=== PATIENT | female | born 1970 | race Caucasian/White ===

== ENCOUNTER 2016-11-19 07:27 | Observation (INO) | payer OTHER ==
[~2016-11-19] VITALS: Ht 160 cm; Wt 59.1 kg
[2016-11-19] VITALS (23 sets, daily range): BP systolic 94–154; BP diastolic 53–82; PULSE 56–83; RESP 8–55; Ht 160 cm; Wt 59.1 kg
[~2016-11-19 07:27] MED LIST: CEFAZOLIN 2 GM/50 ML (PMX) 50 ML IVPB ONE; D5-NS + KCL 20 MEQ 1,000 ML IV SCH; ROCURONIUM 50 MG INJ ONE; ROPIVACAINE 0.2% 20 ML VIAL ONE; SEVOFLURANE 15 MIN ONE; metroNIDAZOLE 500 MG/100 ML NS IVPB ONE; metroNIDAZOLE 500 MG/NS (PMX) 100 ML IVPB ONE
[2016-11-19] MEDS ORDERED: MIDAZOLAM 1 MG/ML 2 ML INJ ONE (08:08)
[2016-11-19] MEDS ORDERED: PROPOFOL 20 ML ONE (08:08)
[2016-11-19] MEDS ORDERED: LIDOCAINE 2% (SDV) 5 ML INJ ONE (08:08)
[2016-11-19] MEDS ORDERED: SUCCINYLCHOLINE CHLORIDE 100 MG/5 ML SYG IV ONE (08:08)
[2016-11-19] MEDS ORDERED: metroNIDAZOLE 500 MG/NS (PMX) 0 ML IVPB ONE (08:08)
[2016-11-19] MEDS ORDERED: CEFAZOLIN 1 GM INJ ONE (08:08)
[2016-11-19] MEDS ORDERED: FENTAnyl 50 MCG/ML VIAL ONE (08:08)
[2016-11-19] MEDS ORDERED: ALEN70TA30 PO (08:17)
[2016-11-19] MEDS ORDERED: LEVO25TA50 PO (08:18)
[2016-11-19] MEDS ORDERED: ESCI10TA PO (08:18)
--- NOTE | 2016-11-19 08:49 | RADRPT ---
PROCEDURE: XR Chest. CLINICAL INDICATION: Preop TECHNIQUE: A single AP view of the chest was obtained. COMPARISON: None. FINDINGS: No focal airspace opacification, pleural effusion or pneumothorax is seen. The cardiomediastinal si lhouette is within normal limits for size. The osseous structures are unremarkable. IMPRESSION: No radiographic evidence of acute cardiopulmonary disease. RPTAT: HH .Lala Cruz MD, MD Date Time Electronically viewed and signed by .Lala Cruz MD, on 11/19/2016 08:49 .G/
[2016-11-19] MEDS ORDERED: VASOPRESSIN 20 UNITS INJ ONE (09:20)
[2016-11-19] MEDS ORDERED: THROMBIN 5000 UNIT VIAL ONE (09:21)
--- NOTE | 2016-11-19 09:23 | HPN ---
Date/Time of Note Date/Time of Note DATE: 11/19/16 TIME: 09:23 Interval H&P Admission Note Pt. seen H&P reviewed: No system changes ARCHANA PETER MD Nov 19, 2016 09:23
[2016-11-19] MEDS ORDERED: METOCLOPRAMIDE 10 MG INJ ONE (10:33)
[2016-11-19] MEDS ORDERED: DEXAMETHASONE 4 MG/ML 1 ML INJ ONE (10:33)
[2016-11-19] MEDS ORDERED: ONDANSETRON 4 MG INJ ONE ×2 (10:33→12:34)
[2016-11-19] MEDS ORDERED: ACETAMINOPHEN 1000MG/100ML IV 100 ML ONE (10:35)
--- NOTE | 2016-11-19 11:03 | HP ---
Date/Time of Note Date/Time of Note DATE: 11/19/16 TIME: 11:02 Assessment/Plan VTE Prophylaxis VTE Prophylaxis Intervention: SCD's Lines/Catheters IV Catheter Type (from Nrs): Peripheral IV HPI/ROS Admit Date/Time Admit Date/Time Nov 19, 2016 at 07:27 Hx of Present Illness Archana Peter M.D. 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 The mass is complex mostly solid and Ca 125- 8 Medical history/ROS: Hypothyroid d/o, High Cholesterol, Hx of Hodgkin's Lymphoma previously treated with Chemotherapy 13 years ago. G 2 P 1 Ab 0 x 1 Surgical history: no significant abdominal procedures. Medications: 11/09/16 alendronate 35 mg tablet 1 tablet by mouth Q1wk 11/09/16 escitalopram 10 mg tablet 1 tablet by mouth DAILY 10/15/16 Flagyl 250 mg tablet 1 tablet by mouth as directed 1 po qd x 2 days germán 10/15/16 Golytely 236 gram-22.74 gram-6.74 gram-5.86 gram oral solution 1 mL by mouth as directed begin bowel prep at 10am 10/15/16 Levaquin 250 mg tablet 1 tablet by mouth as directed 1 po qd x 2 days germán 08/17/16 levothyroxine 100 mcg tablet 1 tablet by mouth DAILY 11/09/16 levothyroxine 25 mcg tablet 1 tablet by mouth DAILY 10/15/16 tramadol 50 mg tablet 1 tablet by mouth as directed 1 po q 8 prn pain gardisil Allergies: 08/17/16 Fentanyl Family Hx: non-contributary Social HX: non-contributary ROS: as above Colonoscopy Physical Examination Vitals (11/17/2016): Weight 135, Height 62.5, BP 118/64, BMI 24.7. General: Alert. HEENT: Pupils are equal, round, reactive to light and accommodation. Neck: Supple with no masses of lymphadenopathy. Breast: Deferred due to recent examination and responsibility of primary care physician. Chest: Clear to auscultation Heart: Normal rhythm with no murmur. Abdomen: Non tender, no ascites nor organomeglay. Pelvic exam: Right adnexal fullness/mass possibly solid, no specific cul-de-sac nodularity. Rectal: confirmatory with pelvic exam. Neurological: Grossly intact Assessment: Pelvic- mass Plan: Laparoscopic LSH/BSO, possible UDx2 , possible staging, possible open. All risks and benefits of this procedure have been discussed in detail with the patient, as well as alternative treatment strategies and their implications. The patient is aware that there is some possibility of a blood transfusion and its associated risks and benefits. She wishes to proceed and gives her informed consent. Archana Peter M.D. PMH/Family/Social Social History Smoking Status: Never smoker Exam/Review of Systems Vital Signs Vitals Vital Signs Date Time Temp Pulse Resp B/P Pulse Ox O2 Delivery O2 Flow Rate FiO2 11/19/16 08:58 97.8 72 16 154/82 100 Medications Medications Current Medications Potassium Chloride/Dextrose/ Sod Cl (D5-NS + KCl 20 Meq) 1,000 ml @ 100 mls/hr Q10H IV ; Start 11/19/16 at 07:00; Stop 11/19/16 at 16:59 ARCHANA PETER MD Nov 19, 2016 11:03
[2016-11-19] MEDS ORDERED: HYDROmorphONE 2 MG/ML SYG ONE (11:32)
[2016-11-19] MEDS ORDERED: LABETALOL HCL 20MG INJ ONE (11:34)
[2016-11-19] MEDS ORDERED: METHYLENE BLUE 1% 10 ML INJ ONE ×2 (11:35→11:39)
[2016-11-19] MEDS ORDERED: ROPIVACAINE 0.2% 20 ML VIAL ONE (12:16)
[2016-11-19] MEDS ORDERED: morphine SULFATE/PF (10 MG/10 ML) INJ ONE (12:16)
[2016-11-19] MEDS ORDERED: GLYCOPYRROLATE 1 MG INJ ONE (12:28)
[2016-11-19] MEDS ORDERED: NEOSTIGMINE 3 MG/3 ML SYRINGE ONE (12:28)
[2016-11-19] MEDS ORDERED: KETOROLAC 30 MG INJ ONE (12:33)
[2016-11-19] MEDS ORDERED: NALOXONE (0.4 MG/ML) INJ ONE (12:53)
[2016-11-19] MEDS ORDERED: MEPERIDINE 25 MG INJ ONE (13:26)
[2016-11-19] MEDS ORDERED: traMADol 50 MG TAB PO PRN (13:30)
[2016-11-19] MEDS ORDERED: morphine 4 MG/ML VIAL IV PRN (13:30)
[2016-11-19] MEDS ORDERED: DIPHENHYDRAMINE 50 MG INJ IV PRN (13:30)
[2016-11-19] MEDS ORDERED: MEPERIDINE 25 MG INJ IV PRN (13:30)
[2016-11-19] MEDS ORDERED: LABETALOL HCL 20MG INJ IV PRN (13:30)
[2016-11-19] MEDS ORDERED: NALBUPHINE HCL (10 MG/1 ML) INJ IV PRN (13:30)
[2016-11-19] MEDS ORDERED: ZOLPIDEM 5 MG TAB PO PRN (13:30)
[2016-11-19] MEDS ORDERED: TRIMETHOBENZAMIDE 100 MG/ML VIAL IM PRN (13:30)
[2016-11-19] MEDS ORDERED: HYDROCODONE/APAP (5/325) TAB PO PRN (13:30)
[2016-11-19] MEDS ORDERED: KETOROLAC 30 MG INJ IV PRN (13:30)
[2016-11-19] MEDS ORDERED: MIDAZOLAM 1 MG/ML 2 ML INJ IV PRN (13:30)
[2016-11-19] MEDS ORDERED: PROCHLORPERAZINE 10 MG INJ IV PRN (13:30)
[2016-11-19] MEDS ORDERED: HYDROmorphONE (0.2 MG/ML) 10ML SYG IV PRN ×2 (13:30)
[2016-11-19] MEDS ORDERED: NALOXONE (0.4 MG/ML) INJ IV PRN (13:30)
[2016-11-19] MEDS ORDERED: morphine 2 MG INJ IV PRN (13:30)
[2016-11-19] MEDS ORDERED: hydrALAzine 20 MG INJ IV PRN (13:30)
[2016-11-19] MEDS ORDERED: FENTAnyl 50 MCG/ML VIAL IV PRN (13:30)
[2016-11-19] MEDS ORDERED: ONDANSETRON 4 MG INJ IV PRN ×3 (13:30)
[2016-11-19] MEDS: DIPHENHYDRAMINE 50 MG INJ IV PRN ×2 (13:34→22:17)
[2016-11-19] MEDS ORDERED: KETOROLAC 30 MG INJ IV SCH (14:00)
[2016-11-19 14:05] LABS: ADD UMIC YES; URINE BILIRUBIN (Dip) NEGATIVE (NEGATIVE); URINE BLOOD (Dip) TRACE (NEGATIVE); URINE COLOR LT YELLOW (YELLOW); URINE GLUCOSE (Dip) NEGATIVE (NEGATIVE); URINE KETONES (Dip) NEGATIVE (NEGATIVE); URINE LEUKOCYTE ESTERASE (Dip) NEGATIVE (NEGATIVE); URINE NITRITE (Dip) NEGATIVE (NEGATIVE); URINE TOTAL PROTEIN (Dip) NEGATIVE (NEGATIVE); URINE UROBILINOGEN (Dip) 0.2 E.U./dL (0.1-1.0)
[2016-11-19 14:19] LABS: BACTERIA,URINE RARE; URINE RBCS 0-2 /HPF (0)
[2016-11-19] MEDS: D5-LR + KCL 20 MEQ 1,000 ML IV SCH (15:36)
[2016-11-19] MEDS: FAMOTIDINE 20 MG INJ IV SCH (20:25)
[2016-11-20] MEDS: D5-LR + KCL 20 MEQ 1,000 ML IV SCH ×2 (00:47→11:29)
[2016-11-20] MEDS: DIPHENHYDRAMINE 50 MG INJ IV PRN (01:58)
[2016-11-20 05:03] LABS: ADD SCAN DIFF NO
[2016-11-20 05:09] LABS: BASOPHILS % 0.1 % (0.0-2.0); HEMATOCRIT 36.5 % (37.0-47.0); HEMOGLOBIN 11.7 g/dl (12.0-16.0); LYMPHOCYTES # 0.7 10^3/ul (0.8-2.9); LYMPHOCYTES % 6.4 % (15.0-51.0); MEAN CORPUSCULAR HEMOGLOBIN 32.1 pg (29.0-33.0); MEAN CORPUSCULAR HGB CONC 32.1 g/dl (32.0-37.0); MONOCYTE # 0.9 10^3/ul (0.3-0.9); MONOCYTES % 7.9 % (0.0-11.0); NEUTROPHIL # 9.4 10^3/ul (1.6-7.5); NEUTROPHILS % 85.1 % (39.0-77.0); PLATELET COUNT 292 10^3/UL (140-415); RED BLOOD COUNT 3.65 10^6/ul (4.20-5.40); RED CELL DISTRIBUTION WIDTH 12.6 % (11.5-14.5)
[2016-11-20 05:19] LABS: POTASSIUM 4.3 mmol/L (3.5-5.1)
[2016-11-20 05:22] LABS: CALCIUM 8.7 mg/dl (8.4-10.2); CREATININE 0.68 mg/dl (0.44-1.00)
[2016-11-20] MEDS ORDERED: LEVOTHYROXINE 25 MCG TAB PO SCH (06:00)
[2016-11-20 07:00] VITALS: BP 115/64; RESP 20
[2016-11-20] MEDS: FAMOTIDINE 20 MG INJ IV SCH (08:23)
[2016-11-20] MEDS ORDERED: ESCITALOPRAM 10 MG TAB PO SCH (09:00)
--- NOTE | 2016-11-20 14:50 | PN ---
Date/Time of Note Date/Time of Note DATE: 11/20/16 TIME: 14:45 Assessment/Plan VTE Prophylaxis VTE Prophylaxis Intervention: SCD's Lines/Catheters IV [facility] Saline Lock Urinary Cath still in place: Yes Assessment/Plan Chief Complaint/Hosp Course adnexal cyst and pain Problems: Assessment/Plan A- doing well P- Adv diet and anticipate discharge today Subjective 24 Hr Interval Summary Free Text/Dictation S- feels better with some possible flatus and voided OK O- Resp-clear CVS- NSR Abd- soft Ext- NT A- doing well P- Adv diet and anticipate discharge today Exam/Review of Systems Vital Signs Vitals Vital Signs Date Time Temp Pulse Resp B/P Pulse Ox O2 Delivery O2 Flow Rate FiO2 11/20/16 08:15 Nasal Cannula 11/20/16 07:00 98.7 63 20 115/64 95 11/19/16 17:15 2.0 Intake and Output 11/19/16 11/19/16 11/20/16 15:00 23:00 07:00 Intake Total 1750 ml 150 ml 1394 ml Output Total 830 ml 400 ml 520 ml Balance 920 ml -250 ml 874 ml Results Result Diagram: 11/20/16 0430 11/20/16 0430 Results 24 hrs Laboratory Tests Test 11/20/16 04:30 White Blood Count 11.0 H Red Blood Count 3.65 L Hemoglobin 11.7 L Hematocrit 36.5 L Mean Corpuscular Volume 100.0 Mean Corpuscular Hemoglobin 32.1 Mean Corpuscular Hemoglobin Concent 32.1 Red Cell Distribution Width 12.6 Platelet Count 292 Mean Platelet Volume 11.0 H Neutrophils % 85.1 H Lymphocytes % 6.4 L Monocytes % 7.9 Eosinophils % 0.0 Basophils % 0.1 Nucleated Red Blood Cells % 0.0 Neutrophils # 9.4 H Lymphocytes # 0.7 L Monocytes # 0.9 Eosinophils # 0.0 Basophils # 0.0 Nucleated Red Blood Cells # 0.0 Sodium Level 144 Potassium Level 4.3 Chloride Level 102 Carbon Dioxide Level 30 Anion Gap 16 Blood Urea Nitrogen 9 Creatinine 0.68 Glucose Level 164 Calcium Level 8.7 Medications Medications Current Medications Potassium Cl/ Dextrose/Lact Ringer's (D5-Lr + KCl 20 Meq) 1,000 ml @ 50 mls/hr Q20H IV Last administered on 11/20/16 11:29; Admin Dose 100 MLS/HR; Start at 13:30 Tramadol HCl (Ultram) 50 mg Q6H PRN PO PAIN; Start 11/19/16 at 13:30 Famotidine (Pepcid Iv) 20 mg BID IV Last administered on 11/20/16 08:23; Admin Dose 20 MG; Start 11/19/16 at 21:00 Levothyroxine Sodium (Synthroid) 25 mcg DAILY@06 PO Last administered on 06:10; Admin Dose 25 MCG; Start 11/20/16 at 06:00 Escitalopram Oxalate (Lexapro) 10 mg DAILY PO ; Start 11/20/16 at 09:00 ARCHANA PETER MD Nov 20, 2016 14:50
[2016-11-20 20:05] VITALS: BP 141/75; PULSE 84; RESP 18
--- NOTE | 2016-11-20 21:44 | OPR ---
Date/Time of Note Date/Time of Note DATE: 11/20/16 TIME: 21:43 Operative Report Free Text/Dictation OPERATIVE REPORT [facility] Name: Jolene Morales Medical Date: 11/19/16 Preoperative Diagnosis: Adnexal mass with pelvic pain Postoperative Diagnosis: 1-Same pathology pending 2- Pelvic adhesions 3- Left ureteral stricture Procedures: 1- Total laparoscopic hysterectomy with BSO 2- Left ureteral dissection with repositioning 3- Enterolysis Surgeon: Dr. Watson Crystal Lapper: NASRIN Muñoz Anesthesia: General with regional Indication for Procedure: The patient is a 46 year old postmenopausal female with a small persistent complex right adnexal mass and discomfort for whom, after considering all options with risks and benefits a laparoscopy was planned with a supracervical hysterectomy and bilateral salpingoophorectomy with possible staging or laparotomy if needed. Findings and Summary The patient was laparoscoped and noted to have a small complex right adnexal cyst, a small uterus and a normal left adnexia but densely adherent to the sidewall with some cul-de-sac adhesions. A ureteral dissection and repositioning was necessary on the left while gaining access to the uterine artery. The total laparoscopic supracervical Name: Jolene Morales Medical hysterectomy with bilateral salpingoophorectomy was then completed uneventfully with the specimen removed through a 2-3 cm minilaparotomy. Procedure: After being prepped and draped in the usual manner the cervix was sutured with interrupted 0- Vicryl suture and an EEA sizer and pneumo-occluder was inserted vaginally was placed against the cervix for options. A 5-millimeter trocar was then placed slightly cephlad to the umbilicus without incident. Subsequently, we insufflated to 15 mm Hg and placed and the abdomen insufflation after which some anterior abdominal wall adhesions involving small bowel and mesentery were noted. Two 5-millimeter trocars laterally and enterolysis was carried out with sharp dissection and an Omni without incident. Subsequently a 12- millimeter trocar was inserted without incident suprapubically. At this time any pelvic adhesions were lysed with sharp dissection and an Omni if not adjacent to serosa. Subsequently we explored and noted a small complex right adnexal cyst, a small uterus and a normal left adnexia but densely adherent to the sidewall with some cul-de-sac adhesions, with the left adnexia obscuring the retroperitoneal anatomy. Initially the right round ligament was cauterized and transected with the Thunderbeat and the retroperitoneal spaced opened parallel to the IP ligament and laterally with the same devise and Omni. The ureter were identified and the ureter was minimally dissected away from the broad ligament with an Omni and endo-dissector. As a precaution, the uterine artery was identified and clipped lateral to the ureter, immediately distal to the branching of the hypogastric and at the bifurcation of the hypogastric; salvaging both observed superior and inferior vesicle while controlling the entire uterine with associated collateral branches. Hence, space was developed in the broad ligament and the IP ligament was transected with a Thunderbeat. At this time the sigmoid was dissected from the sidewall with sharp dissection and the Omni if not adjacent to serosa. The left round ligament was transected with the Thunderbeat and the retroperitoneal spaced opened parallel to the IP ligament and laterally with the same devise and Omni. The ureter was identified and Name: Jolene [facility] because of the adnexia being densely adherent to the sidewall required a specific dissection and repositioning. The ureter was bluntly dissected away from the broad ligament bilaterally with an Omni and endo-dissector, and carefully repositioned lateral to the broad ligament and scar tissue with inflammation and with adjacent adnexia. Similarly, due to vascularity and ongoing oozing as well as the adjacent adherent adnexia the uterine artery was identified and clipped lateral to the ureter, immediately distal to the branching of the hypogastric and at the bifurcation of the hypogastric; salvaging both observed superior and inferior vesicle while controlling the entire uterine with associated collateral branches. Subsequently, space was developed in the broad ligament and the IP ligament was transected with a Thunderbeat. We then used a ratcheted endo-grasper placed through the 12-mm suprapubic trocar to manipulate the uterus allowing development or the bladder flap uneventfully with the Omni and blunt dissection. Subsequently the cul-de- sac was developed with sharp dissection and the Omni after which the right uterine artery was transected with a Thunderbeat perpendicular to the distal lower uterine segment and the Cardinal ligament and utero-sacral ligament were both transected with an Omni and Thunderbeat parallel to the lower uterine segment and cervix. An identical series of steps were taken on the contralateral side. Additional efforts were required to safely further develop the cul-de-sac with sharp dissection laterally and the integrity of the sigmoid was confirmed with the EEA sizer. The uterus and adnexia was then removed from the cervix with the Thunderbeat without incident, after which the cervix was further cauterized with the Omni. The suprapubic 12-millimeter trocar site was minimally extended to 2-3 cm midline to allow development of a minilaparotomy with sharp dissection and an electrocautery and upon completion of the minilaparotomy with some blunt dissection, the uterus and adnexia separately were then removed intact, with all tissue accounted for. The incision was partly closed with interrupted 0- Vicryl suture, after which the 12-millimeter trocar was reinserted. After irrigating and assuring hemostasis the 12- millimeter trocar was removed and the fascia was closed with 0-vicryl using an endo-close devise. The gas was removed and the skin of all sites then closed with 4-0 Name: [facility] Monocryl subcuticular suture. The EBL was 50 ml and the patient tolerated the procedure well and left the OR in good condition. Archana Watson M.D. ARCHANA WATSON MD Nov 20, 2016 21:44
== END 2016-11-20 20:08 | disposition home or self-care (01) ==
LOC: REC 07:27 → INTOOBSV 07:27 → MS1 14:35
DX: N80.0 Endometriosis of uterus (principal); D25.9 Leiomyoma of uterus, unspecified; N84.0 Polyp of corpus uteri; N73.6 Female pelvic peritoneal adhesions (postinfective); N13.5 Crossing vessel and stricture of ureter without hydronephrosis; N83.332 Acquired atrophy of left ovary and fallopian tube; N83.331 Acquired atrophy of right ovary and fallopian tube; E03.9 Hypothyroidism, unspecified; E78.5 Hyperlipidemia, unspecified; E11.9 Type 2 diabetes mellitus without complications; E78.00 Pure hypercholesterolemia, unspecified; Z92.21 Personal history of antineoplastic chemotherapy; Z85.71 Personal history of Hodgkin lymphoma; Z88.8 Allergy status to other drugs, medicaments and biological substances
CPT/HCPCS: 50715; 58571; 71010; 80048; 81001; 84703; 85025; 86850; 86900; 86901; 86920; 87086; 88305; 96374; 96375; J0131; J0330; J0690; J1100; J1170; J1200; J1644; J1885; J2175; J2250; J2274; J2310; J2405; J2710; J2765; J2795; J3010; J3480; Z7500; Z7512; Z7610; 81003; 99217; G0378